=== PATIENT | male | born 1940 | race Caucasian/White ===

== ENCOUNTER → 2024-02-11 | Outpatient (BNVA) | payer MEDICARE, BC, MEDICAID, SELFPAY | END | disposition home or self-care (01) | PROVIDERS: PCP Family Medicine; Referring Provider Family Medicine; Visit Provider Urology | DX: C61 Malignant neoplasm of prostate (principal); N13.2 Hydronephrosis with renal and ureteral calculous obstruction; Z90.79 Acquired absence of other genital organ(s); E78.00 Pure hypercholesterolemia, unspecified; Z86.73 Personal history of transient ischemic attack (TIA), and cerebral infarction without residual deficits; I48.91 Unspecified atrial fibrillation; I25.10 Atherosclerotic heart disease of native coronary artery without angina pectoris; Z87.891 Personal history of nicotine dependence | CPT/HCPCS: 81003; 99212; G0463 ==

== ENCOUNTER → 2024-04-25 | Outpatient (CLI) | payer MEDICARE, BC, MEDICAID, SELFPAY ==
[2024-04-25 09:07] LABS: Prostate Specific Antigen < 0.10 ng/mL (0-4.00)
== END | disposition home or self-care (01) ==
PROVIDERS: PCP Family Medicine; Referring Provider Urology; Visit Provider Urology
DX: C61 Malignant neoplasm of prostate (principal)
CPT/HCPCS: 36415; 84153

== ENCOUNTER → 2024-06-22 | Outpatient (CLI) | payer MEDICARE, BC, MEDICAID, SELFPAY ==
[2024-06-22 11:29] LABS: Basophils % (Auto) 0 % (0-2.5); Eosinophils # (Auto) 0.2 Thou/mm3 (0.0-0.5); Eosinophils % (Auto) 3 % (0-10); Mean Corpuscular Volume 93 fL (80-100); Monocytes # (Auto) 0.2 Thou/mm3 (0.0-0.8); Nucleated Red Blood Cell % 0 /100 WBC (0); White Blood Count 5.8 Thou/mm3 (3.8-10.6)
[2024-06-22 11:31] LABS: Hematocrit 40.6 % (41.0-53.0); Immature Granulocytes % (Auto) 1 % (0-0); Immature Granulocytes Auto 0.05 Thou/mm3 (0.00-0.00); Lymphocytes # (Auto) 0.8 Thou/mm3 (1.0-4.8); Lymphocytes % (Auto) 13 % (10-50); Mean Corpuscular HGB Conc 29.6 g/dl (31.0-37.0); Mean Corpuscular Hemoglobin 27.5 pg (25.0-35.0); Monocytes % (Auto) 4 % (0-12); Neutrophils # (Auto) 4.6 Thou/mm3 (1.8-7.7); Neutrophils % (Auto) 79 % (37-80); RDW Standard Deviation 50.5 fL (35.1-43.9); Red Blood Count 4.36 Miln/mm3 (4.50-5.90)
[2024-06-22 11:58] LABS: Platelet Count 58 Thou/mm3 (140-440)
[2024-06-22 12:25] LABS: Slide Review Platelets confirmed
== END | disposition home or self-care (01) ==
LOC: COPL 09:19
PROVIDERS: PCP Family Medicine; Referring Provider Family Medicine; Visit Provider Family Medicine
DX: D50.0 Iron deficiency anemia secondary to blood loss (chronic) (principal)
CPT/HCPCS: 36415; 85025

== ENCOUNTER → 2024-09-25 | Outpatient (BNVA) | payer MEDICARE, BC, MEDICAID, SELFPAY | END | disposition home or self-care (01) | PROVIDERS: PCP Family Medicine; Referring Provider Family Medicine; Visit Provider Urology | DX: C61 Malignant neoplasm of prostate (principal); E78.00 Pure hypercholesterolemia, unspecified; I48.91 Unspecified atrial fibrillation; I25.2 Old myocardial infarction; I25.10 Atherosclerotic heart disease of native coronary artery without angina pectoris; Z86.73 Personal history of transient ischemic attack (TIA), and cerebral infarction without residual deficits | CPT/HCPCS: 81003; 99212; G0463 ==

== ENCOUNTER → 2024-11-03 | Outpatient (CLI) | payer MEDICARE, MEDICAID, SELFPAY ==
--- NOTE | 2024-11-03 09:15 | XR_ITS ---
Examination: Retroperitoneal ultrasound, complete Technique: Multiple high resolution grayscale images of the retroperitoneum obtained, including kidneys and bladder. Exam date and time:November 03, 2024, 0911 hours INDICATIONS: History kidney stones left ureteral stent FINDINGS: Right kidney 9.6 cm renal cortex 1.7 cm 22 mm lower pole, 24 mm 43 mm upper pole cyst Left kidney 10.7 cm cortex 1.8 cm 11 mm midpole calculus No hydronephrosis Contracted urinary bladder IMPRESSION: 11 mm left renal calculus No hydronephrosis
== END | disposition home or self-care (01) ==
PROVIDERS: Referring Provider Urology; Visit Provider Urology
DX: N20.0 Calculus of kidney (principal)
CPT/HCPCS: 76770

== ENCOUNTER 2024-12-06 06:49 | Day surgery (SDC) | payer MEDICARE, MEDICAID, SELFPAY ==
--- NOTE | 2024-12-05 08:35 | EKG_ITS ---
[facility] Test Date: 2024-12-05 Pat Name: MIRANDA ALVARENGA Department: Room: - Gender: Male Senior [employer] Administrator: VICTOR MANUEL : 1940 Requested By: Aram Quispe Order Number: [id number] Reading MD: Aram Quispe Measurements Intervals [place] Rate: 56 P: -24 MA: 207 QRS: -70 QRSD: 127 T: -64 QT: 430 QTc: 416 Interpretive Statements SINUS BRADYCARDIA POSSIBLE LEFT VENTRICULAR HYPERTROPHY [VOLTAGE CRITERIA PLUS LAE OR QRS WIDENING] ANTERIOR MYOCARDIAL INFARCTION , PROBABLY RECENT [40+ ms Q WAVE AND/OR ST/T ABNORMALITY IN V3/V4] INFERIOR MYOCARDIAL INFARCTION , OF INDETERMINATE AGE [40+ ms Q WAVE AND/OR ST/T ABNORMALITY IN II/aVF] ACUTE WI Compared to ECG 11/03/2023 20:30:03 Atrial fibrillation no longer present Ventricular premature complex(es) no longer present Aberrant conduction of supraventricular beat(s) no longer present Myocardial infarct finding still present /store/S0/[id number]/ecg/[id number].pdf
[2024-12-05 09:37] LABS: Anion Gap 9 (7-16); BUN/Creatinine Ratio 12 Ratio (12-20); Basophils # (Auto) 0.0 Thou/mm3 (0.0-0.2); Basophils % (Auto) 0 % (0-2.5); Blood Urea Nitrogen 14 mg/dL (9-23); Calcium 10.8 mg/dL (8.3-10.6); Carbon Dioxide 27.3 mMol/L (20.0-31.0); Chloride 109 mMol/L (98-107); Creatinine (Component) 1.2 mg/dL (0.6-1.3); Eosinophils # (Auto) 0.1 Thou/mm3 (0.0-0.5); Eosinophils % (Auto) 2 % (0-10); Glucose 113 mg/dL (74-106); Hematocrit 46.9 % (41.0-53.0); Hemoglobin 13.7 g/dL (13.5-16.0); Immature Granulocytes Auto 0.03 Thou/mm3 (0.00-0.00); Lymphocytes # (Auto) 0.7 Thou/mm3 (1.0-4.8); Lymphocytes % (Auto) 12 % (10-50); Mean Corpuscular HGB Conc 29.2 g/dl (31.0-37.0); Mean Corpuscular Hemoglobin 26.6 pg (25.0-35.0); Mean Corpuscular Volume 91 fL (80-100); Monocytes # (Auto) 0.1 Thou/mm3 (0.0-0.8); Monocytes % (Auto) 2 % (0-12); Neutrophils # (Auto) 4.9 Thou/mm3 (1.8-7.7); Neutrophils % (Auto) 83 % (37-80); Nucleated Red Blood Cell # 0.00 Thou/mm3 (0.00-0.00); Nucleated Red Blood Cell % 0 /100 WBC (0); Osmolality,Calculated 290 (275-295); Potassium 4.6 mMol/L (3.4-5.1); RDW Standard Deviation 47.8 fL (35.1-43.9); Red Blood Count 5.16 Miln/mm3 (4.50-5.90); Sodium 145 mMol/L (136-145); White Blood Count 5.9 Thou/mm3 (3.8-10.6); eGFR 60 See Note
[2024-12-05 09:40] LABS: INR 1.1 (0.9-1.3); Partial Thromboplastin Time 27.1 Seconds (22.0-36.0); Prothrombin Time 11.5 Seconds (9.0-12.2)
[2024-12-05 09:45] LABS: Platelet Count 38 Thou/mm3 (140-440)
[2024-12-05 09:54] LABS: Slide Review Platelets confirmed
[2024-12-05 12:25] VITALS: BMI 24.4
[2024-12-06] VITALS (14 sets, daily range): BP systolic 105–146; BP diastolic 55–84; PULSE 58–73; RESP 15–22; TEMP 36.5; O2SAT 92–94; BMI 27.6
--- NOTE | 2024-12-06 11:00 | PC.NURSE ---
TR band removed at this time. Surgical site with no active bleeding, no hematoma noted on right upper extremity or around the surgical site, yohana-surgical site note to be bruised about 3 cm x 2 cm, proximal pre-existent bruised area remains with no changes. Capillary refill < 3 seconds. No noted changes in color or temperature on right upper extremity. Patient denies general and localized pain, no loss in sensation, no tingling or numbness felt to right upper extremity. Tagaderm and Coban wrap applied. Will continue to monitor.
--- NOTE | 2024-12-06 11:59 | PC.NURSE ---
Patient discharged in stable conditions accompanied by family. Resident left Unit walking to visit family member in the hospital (4th floor)
--- NOTE | 2024-12-09 17:44 | ESOP_ITS ---
RE: MIRANDA ALVARENGA : 1940 DATE OF OPERATION: 12/06/2024 PROCEDURES PERFORMED: 1. Diagnostic left heart cardiac catheterization, selective coronary angiogram, left ventricular angiogram. 2. Ultrasound guided access, right radial artery. 3. Conscious sedation, 30 minutes duration. DIAGNOSES: Coronary artery disease, status post stent placement, angina pectoris, abnormal stress test. HISTORY AND INDICATIONS: The patient is an 84-year-old male with a history of CAD, status post stent placement, angioplasty, and angina pectoris. He has been having recurrent shortness of breath, chest pain on exertion. Cardiac stress test and nuclear scan showed extensive inferolateral ischemia, hence coronary angiogram was recommended to assess the patient is a candidate for intervention and revascularization DESCRIPTION OF PROCEDURE: The patient was brought to the cardiac catheterization laboratory. He was given 2 mg of Versed and 50 mcg of fentanyl for conscious sedation. The right radial approach was taken. The right radial artery was cannulated by micropuncture technique and a 6-Yi Glidesheath was introduced. Selective right cornary angiogram was performed by using a TIG4 diagnostic catheter. Used JL5 diagnostic catheter to perform selective left coronary angiogram. The patient tolerated the procedure well. No complications. Cardiac catheterization showed following findings: HEMODYNAMICS: Left ventricular pressure is 105/10. Aortic pressure is 105/70. No gradient across the aortic valve. Left ventricular angiography showed normal left ventricular wall motion. Ejection fraction is 55% to 60%. Coronary angiography showed the following findings: Right coronary artery is large and dominant and showed total occlusion in the mid segment. Heavy calcification is seen in the proximal and mid segment. Distal RCA is visualized via collaterals. Filling is excellent via collaterals. Left coronary system: Left main coronary artery is normal. Calcification is seen in the proximal and mid LAD. Left anterior descending artery showed multiple stents patent. Circumflex artery is nondominant. It appears to show no significant stenosis. There is one large obtuse marginal branch and also posterolateral branches, which are giving excellent collaterals to the RCA and distal right coronary system. SUMMARY OF FINDINGS: 1. Mildly patent stents in the mid and proximal left anterior descending artery. 2. Total occlusion of the right coronary artery with excellent skmy-st-kzziz collaterals. 3. Calcification of the proximal LAD and proximal left main with no significant stenosis. 4. Well-preserved LV function. RECOMMENDATIONS: The patient is reassured about the absence of significant left coronary artery disease. Right coronary artery occlusion is chronic and total with excellent collaterals. Maximum medical management is warranted. Guideline-directed medical management for stable angina pectoris. DT: 16:33:14 TT: 17:39:00 Ref: [id number] - TID: [id number] MTDD
== END 2024-12-06 11:59 | disposition home or self-care (01) ==
PROVIDERS: PCP Family Medicine; Referring Provider Internal Medicine Cardiovascular Disease; Visit Provider Internal Medicine Cardiovascular Disease
PROC: (CPT 93458; principal; 2024-12-06 07:30)
DX: I25.118 Atherosclerotic heart disease of native coronary artery with other forms of angina pectoris (principal); Z95.5 Presence of coronary angioplasty implant and graft; I25.82 Chronic total occlusion of coronary artery; Z01.810 Encounter for preprocedural cardiovascular examination; E78.2 Mixed hyperlipidemia; R94.30 Abnormal result of cardiovascular function study, unspecified; I48.21 Permanent atrial fibrillation; Z79.899 Other long term (current) drug therapy; Z79.01 Long term (current) use of anticoagulants
CPT/HCPCS: 93458; 36415; 80048; 85025; 85610; 85730; 93005; 99152; A4649; C1751; C1769; C1887; C1894; J0168; J0461; J1643; J2250; J2312; J2371; J2720; J3010; J3490; Q9967; C1725; J2305

== ENCOUNTER 2024-12-09 09:45 | Emergency (ER) | payer MEDICARE, MEDICAID, SELFPAY ==
[2024-12-09 09:46] VITALS: BMI 27.4
[2024-12-09 09:57] VITALS: BP 144/74; PULSE 49; RESP 17; TEMP 36.7; O2SAT 96
--- NOTE | 2024-12-09 10:41 | PD.EDEXREM ---
ED Extremity Problem RME/HPI General Chief complaint: Extremity Problem,Nontraumatic Stated complaint: BRUISING TO RIGHT ARM AFTER HEART CATH 3 DAYS AGO Time Seen by Provider: 12/09/24 10:19 Arrival date/time: 12/09/24 09:45 RME / HPI RME / HPI Narrative: DR. CARDONA MAIN ED EVALUATION: 84 y/o male with Hx of Atrial Fibrillation, CAD, Prostate CA, Anemia, and TIA presents to ED c/o RUE bruising s/p angiogram x 6 hours. Per granddaughter, bandage was removed from the forearm yesterday with no signs of bruising. Bruising has now improved in size and color. Patient has been off Eliquis for 6 days now. Denies swelling, back pain, or any recent injury or trauma. Patient reports an allergy to Ampicillin. No changes to sensation. No weakness no numbness. No shortness of breath. No chest pain. No changes in sensation to upper extremity. Related Data Home Medications ?Medication ?Instructions ?Recorded ?Confirmed atorvastatin 20 mg tablet 20 mg PO QDAY 08/24/17 09/25/24 [id number]-kousif tablet 1 tab PO QDAY 05/23/21 09/25/24 omeprazole 40 mg capsule,delayed 40 mg PO QDAY 05/23/21 09/25/24 release apixaban 5 mg tablet (Eliquis) 5 mg PO BID 12/01/23 09/25/24 Held on 12/06/24. Instructions: Resume on 12/23/24. HOLD THIS MEDICATION UNTIL YOU TALK TO Dr. MUNGUIA AND HE TELLS YOU IS OK FOR YOU TO CONTINUE TAKING IT ascorbic acid 100 mg-zinc sulfate 1 tab PO DAILY 12/01/23 09/25/24 200 mg tablet ferrous sulfate 325 mg (65 mg 325 mg PO QDAY 12/01/23 09/25/24 iron) tablet (Iron (ferrous sulfate)) tamsulosin 0.4 mg capsule (Flomax) 0.4 mg PO QDAY 12/01/23 09/25/24 aspirin 81 mg tablet 81 mg PO QDAY 09/25/24 09/25/24 Previous Rx's ?Medication ?Instructions ?Recorded furosemide 40 mg tablet (Lasix) 40 mg PO QAM #30 tabs 11/01/23 tramadol 50 mg tablet 50 mg PO Q8H PRN pain #20 tabs 12/02/23 Allergies Allergy/AdvReac Type Severity Reaction Status Date / Time adhesive tape Allergy Severe Hives Verified 12/09/24 16:07 ampicillin Allergy Severe Hives Verified 12/09/24 16:07 Review of Systems Review of Systems Systems Reviewed: All systems reviewed, normal except as documented Past Medical History Past Medical History NEUROLOGIC: Positive Transient Ischemic Attacks (TIA) CARDIAC: Positive Cardiac Disorders (Dilated aorta), Myocardial Infarction, Atrial Fibrillation, Coronary Artery Disease and Hypercholesterolemia RESPIRATORY: Positive Pneumonia (recent) GASTROINTESTINAL: Positive Gastrointestinal Disorders and Hemorrhoids GENITOURINARY: Positive Genitourinary Disorders, Kidney Stones and Prostate Cancer ENT: Positive Cataracts and Deafness HEMATOLOGIC: Positive Blood Disorders and Anemia OTHER HISTORY: Positive Hospitalization (recent pneumonia), Chicken Pox, Measles, Mumps, Cancer and Prostate Cancer Family History FAMILY HISTORY: Positive Family Cancer (Prostate) and Family Surgery Surgical History SURGICAL: Positive Coronary Stent (2009 x3 stents), Tonsillectomy, Transurethral Resection (Prostatectomy robotic) and Vasectomy ED Exam Narrative Physical exam: GEN. APPEARANCE: The patient is alert awake oriented X-3 in no distress, sitting comfortably, does not look ill/toxic. Patient has good eye contact. Patient is cooperative. VITALS: All vitals were reviewed and the pulse ox is 96% on room air which is normal according to my interpretation. HEENT: Normocephalic, atraumatic. Pupils are equal and reactive. Oral mucosa is moist. Patent Nares NECK: Supple, nontender, no thyromegaly, no meningismus, no JVD CHEST: Symmetrical, atraumatic, and with equal expansion , Nontender on palpation no deformity and no crepitus. CARDIOVASCULAR: Heart regular rhythm no murmur or gallop rub or extra beats. LUNGS: Clear to auscultation bilaterally with symmetrical chest rise. No laboring tachypnea or wheezing. No intercostal subcostal retraction. No rales and no rhonchi. ABDOMEN: Soft, flat, nontender to palpation, no guarding or rebound tenderness. There are no abnormal masses palpated. Active and normal bowel sounds. EXTREMITIES: Nontender. No edema. No cyanosis. Patient is able to move all 4 extremities well, with full ROM. 12-inch hematoma to the right forearm, 2+ radial and ulnar pulses. Flat. compartments soft. 2+ radial and ulnar pulses, symmetric b/l UEs, no bruits, no active bleeding SKIN: Warm and dry, no jaundice or rashes noted. NEURO: Patient is SAWYER x 4, Cranial nerves II through XII grossly intact. There is no focal neurologic deficits noted. GCS is 15, PNS and REFRACTIVE SURGEON appear grossly intact. PSYCHIATRIC: Patient is in normal mood and affect. Course Quality Measures none Orders Category Date Time Status CT Screening NOW Care 12/09/24 10:42 Completed CBC Stat Lab 12/09/24 10:54 Completed CMP [Comprehensive Metabolic Panel] Stat Lab 12/09/24 10:54 Completed Type and Screen Stat Lab 12/09/24 10:54 Completed Reevaluation(s) Reevaluation #1: Patient is adamant about not being poked again and declines angiogram at this time. Hematoma remains unchanged with good pulses. Patient will F/U as outpatient with Dr. Munguia, his baccarat dealer on Wednesday. Granddaughter agrees and is ok with patient's wishes. Patient will return if symptomms worsen, swells, or if anything arises of concern. Time: 14:00 Vital Signs Vital signs: Vital Signs Temperature 98.0 F 12/09/24 09:57 Pulse Rate 49 L 12/09/24 09:57 Respiratory Rate 17 12/09/24 09:57 Blood Pressure 144/74 H 12/09/24 09:57 Pulse Oximetry (%) 96 12/09/24 09:57 Oxygen Delivery Method Room Air 12/09/24 09:57 Extremity Problem MDM Narrative MDM Narrative:: Scribe Attestation: Marisol Klein am scribing for and in the presence of Dr. Cardona. Provider Notation: Although this document has been carefully reviewed, there may still be some phonetic and other typographical errors. These errors are purely grammatical due to imperfections in the software program and should not be construed in any way to compromise the substance of the patient's medical care during this visit. Patient is a 84 yo male that is in the ED with bruising to RUE after angiogram. VS and exam as listed. Patient w/o signs of bleeding. Hematoma not expanding, however given that hematoma presented post angiogram concern for AVM, aneurysm. Ordered CT, labs, offered meds for symptom relief. Labs reassuring. Patient IV in CT infiltrated and nursing staff attempted to replace IV, however, patient declined further attempts to place IV and does not want to move forward with CTA of UE. Patient understands that we have not r/o life threatening pathology, however, he feels well and will monitor symptoms at home. If worsening bruising, swelling, or any other symptom of concern, will return immediately. Will dc to home. Patient HD stable. Hematoma outlined with marker to follow. Patient and grand daughter will closely monitor. Patient data External records reviewed:: [facility] previous records (Reviewed prior ED records from 10/25/23. Patient was seen for Acute respiratory failure with hypoxia.) Clinical information provided by:: patient Social determinants that could affect healthcare access:: none Patient has the following chronic illnesses:: Atrial Fibrillation, Coronary Artery Disease, Hypercholesterolemia, Hemorrhoids, Kidney Stones, Prostate Cancer, Anemia, Cataracts, Deafness How is presenting disease/condition affected by chronic disease/condition?: exacerbated by Evaluation data The following diagnostics were reviewed and interpreted by me:: lab results Lab and/or radiology exams considered but not ordered:: None Interpretation Summary: See MDM above. Medications / Prescriptions Medications or Prescriptions considered but not ordered:: None Medication administrations:: See above if any. Consultations Consultation(s) initiated? (list below): No Diagnosis Extremity Problem Differential Diagnosis: superficial thrombophlebitis, deep venous thrombosis of upper extremity and other (Contusion, PE) Most likely diagnosis given after review of the tests above:: Hematoma of right forearm Admission Indicated Admission indicated?: not indicated Explain why admission is indicated or not indicated:: Patient does not meet admission criteria. Admission Request Was there a request for admission?: No Disposition Plan Disposition Plan: Discharge Discharge Attestation Discharge Attestation: The patient and all family members were given an opportunity to ask questions and understood the discharge instructions. Discharge instructions specifically effects, indications for sooner follow up or return to the emergency department, and the expected course of current diagnosis. Patient condition: Stable Discharge Plan Plan Patient Disposition: HOME (Self Care) Prescriptions/Referrals Prescriptions/Med Rec: No Action aspirin 81 mg tablet 81 mg PO QDAY omeprazole 40 mg capsule,delayed release(DR/EC) 40 mg PO QDAY Patient Comments: TAKE 1 CAPSULE BY MOUTH ONCE DAILY [id number] Tablet 1 tab PO QDAY atorvastatin 20 mg Tablet 20 mg PO QDAY ascorbic acid-zinc sulfate 200-100 mg Tablet 1 tab PO DAILY tamsulosin [Flomax] 0.4 mg Capsule 0.4 mg PO QDAY ferrous sulfate [Iron (ferrous sulfate)] 325 mg (65 mg iron) Tablet 325 mg PO QDAY Eliquis 5 mg Tablet 5 mg PO BID tramadol 50 mg tablet 50 mg PO Q8H PRN (Reason: pain) Qty: 20 0RF furosemide [Lasix] 40 mg tablet 40 mg PO QAM Qty: 30 0RF Referrals: Nicola Chase MD [Primary Care Provider, Family Practice] - In 1 week Problem List Clinical Impression: Hematoma of right forearm Patient/Caregiver Discharge Instructions Education Materials: ED Contusion, Upper Extremity Additional Instructions: Follow-up with your baccarat dealer on Wednesday. Return immediately if symptoms worsen or persist. It is very important that you monitor your hematoma in your arm. If you develop swelling, the hematoma expands, you have changes in sensation in your arm, chest pain, shortness of breath or any other symptom of concern it is important that you call 911 or return to the emergency department. In the event that you develop bleeding is important they please return to can immediately come to the emergency department. Print Language: Algerian Stand Alone Forms: [employer] Award Info., Patient Portal Info Letter
--- NOTE | 2024-12-09 10:43 | PD.EDEXREM ---
ED Extremity Problem RME/HPI General Chief complaint: Extremity Problem,Nontraumatic Stated complaint: BRUISING TO RIGHT ARM AFTER HEART CATH 3 DAYS AGO Time Seen by Provider: 12/09/24 10:19 Arrival date/time: 12/09/24 09:45 Related Data Home Medications ?Medication ?Instructions ?Recorded ?Confirmed atorvastatin 20 mg tablet 20 mg PO QDAY 08/24/17 09/25/24 [id number] tablet 1 tab PO QDAY 05/23/21 09/25/24 omeprazole 40 mg capsule,delayed 40 mg PO QDAY 05/23/21 09/25/24 release apixaban 5 mg tablet (Eliquis) 5 mg PO BID 12/01/23 09/25/24 Held on 12/06/24. Instructions: Resume on 12/23/24. HOLD THIS MEDICATION UNTIL YOU TALK TO Dr. MUNGUIA AND HE TELLS YOU IS OK FOR YOU TO CONTINUE TAKING IT ascorbic acid 100 mg-zinc sulfate 1 tab PO DAILY 12/01/23 09/25/24 200 mg tablet ferrous sulfate 325 mg (65 mg 325 mg PO QDAY 12/01/23 09/25/24 iron) tablet (Iron (ferrous sulfate)) tamsulosin 0.4 mg capsule (Flomax) 0.4 mg PO QDAY 12/01/23 09/25/24 aspirin 81 mg tablet 81 mg PO QDAY 09/25/24 09/25/24 Previous Rx's ?Medication ?Instructions ?Recorded furosemide 40 mg tablet (Lasix) 40 mg PO QAM #30 tabs 11/01/23 tramadol 50 mg tablet 50 mg PO Q8H PRN pain #20 tabs 12/02/23 Allergies Allergy/AdvReac Type Severity Reaction Status Date / Time adhesive tape Allergy Severe Hives Verified 12/09/24 09:48 ampicillin Allergy Severe Hives Verified 12/09/24 09:48 Course Orders Category Date Time Status CT Screening NOW Care 12/09/24 10:[address] angio UE RT Stat Exams 12/09/24 10:41 Ordered CBC Stat Lab 12/09/24 10:54 Completed CMP [Comprehensive Metabolic Panel] Stat Lab 12/09/24 10:54 Completed Type and Screen Stat Lab 12/09/24 10:54 Completed Vital Signs Vital signs: Vital Signs Temperature 98.0 F 12/09/24 09:57 Pulse Rate 49 L 12/09/24 09:57 Respiratory Rate 17 12/09/24 09:57 Blood Pressure 144/74 H 12/09/24 09:57 Pulse Oximetry (%) 96 12/09/24 09:57 Oxygen Delivery Method Room Air 12/09/24 09:57 Discharge Plan Plan Patient Disposition: HOME (Self Care) Prescriptions/Referrals Prescriptions/Med Rec: No Action aspirin 81 mg tablet 81 mg PO QDAY omeprazole 40 mg capsule,delayed release(DR/EC) 40 mg PO QDAY Patient Comments: TAKE 1 CAPSULE BY MOUTH ONCE DAILY [id number] Tablet 1 tab PO QDAY atorvastatin 20 mg Tablet 20 mg PO QDAY ascorbic acid-zinc sulfate 200-100 mg Tablet 1 tab PO DAILY tamsulosin [Flomax] 0.4 mg Capsule 0.4 mg PO QDAY ferrous sulfate [Iron (ferrous sulfate)] 325 mg (65 mg iron) Tablet 325 mg PO QDAY Eliquis 5 mg Tablet 5 mg PO BID tramadol 50 mg tablet 50 mg PO Q8H PRN (Reason: pain) Qty: 20 0RF furosemide [Lasix] 40 mg tablet 40 mg PO QAM Qty: 30 0RF Referrals: Nicola Chase MD [Primary Care Provider, Family Practice] - In 1 week Problem List Clinical Impression: Hematoma of right forearm Patient/Caregiver Discharge Instructions Education Materials: ED Contusion, Upper Extremity Additional Instructions: Follow-up with your iron melter on Wednesday. Return immediately if symptoms worsen or persist. It is very important that you monitor your hematoma in your arm. If you develop swelling, the hematoma expands, you have changes in sensation in your arm, chest pain, shortness of breath or any other symptom of concern it is important that you call 911 or return to the emergency department. In the event that you develop bleeding is important they please return to can immediately come to the emergency department. Print Language: Turkmen Stand Alone Forms: [employer] Award Info., Patient Portal Info Letter
[2024-12-09 11:09] LABS: Basophils # (Auto) 0.0 Thou/mm3 (0.0-0.2); Basophils % (Auto) 0 % (0-2.5); Eosinophils # (Auto) 0.2 Thou/mm3 (0.0-0.5); Eosinophils % (Auto) 3 % (0-10); Hematocrit 46.0 % (41.0-53.0); Hemoglobin 13.5 g/dL (13.5-16.0); Immature Granulocytes Auto 0.03 Thou/mm3 (0.00-0.00); Lymphocytes # (Auto) 0.9 Thou/mm3 (1.0-4.8); Lymphocytes % (Auto) 14 % (10-50); Mean Corpuscular HGB Conc 29.3 g/dl (31.0-37.0); Mean Corpuscular Hemoglobin 26.4 pg (25.0-35.0); Mean Corpuscular Volume 90 fL (80-100); Monocytes # (Auto) 0.2 Thou/mm3 (0.0-0.8); Monocytes % (Auto) 3 % (0-12); Neutrophils # (Auto) 5.2 Thou/mm3 (1.8-7.7); Neutrophils % (Auto) 80 % (37-80); Nucleated Red Blood Cell # 0.00 Thou/mm3 (0.00-0.00); Nucleated Red Blood Cell % 0 /100 WBC (0); RDW Standard Deviation 45.7 fL (35.1-43.9); Red Blood Count 5.12 Miln/mm3 (4.50-5.90); White Blood Count 6.5 Thou/mm3 (3.8-10.6)
[2024-12-09 11:22] LABS: Alanine Aminotransferase 14 U/L (10-49); Albumin, Serum 4.1 gm/dL (3.4-4.8); Albumin/Globulin Ratio 2.0 (1.2-2.2); Alkaline Phosphatase 91 U/L (46-116); Anion Gap 9 (7-16); Aspartate Amino Transferase 21 U/L (0-34); BUN/Creatinine Ratio 7 Ratio (12-20); Bilirubin,Total 0.9 mg/dL (0.3-1.2); Blood Urea Nitrogen 8 mg/dL (9-23); Calcium 10.5 mg/dL (8.3-10.6); Calcium (Corrected) 10.5 mg/dL (8.5-10.1); Carbon Dioxide 25.1 mMol/L (20.0-31.0); Chloride 109 mMol/L (98-107); Creatinine (Component) 1.2 mg/dL (0.6-1.3); Estimated Creatinine Clearance 48.8 mL/min (>60); Globulin 2.1 gm/dL (2.3-3.5); Glucose 96 mg/dL (74-106); Osmolality,Calculated 283 (275-295); Potassium 5.0 mMol/L (3.4-5.1); Sodium 143 mMol/L (136-145); Total Protein 6.2 gm/dL (5.7-8.2); eGFR 60 See Note
[2024-12-09 11:49] LABS: Platelet Count 37 Thou/mm3 (140-440)
[2024-12-09 11:54] LABS: Slide Review Platelets confirmed
[2024-12-09 13:16] VITALS: BP 124/60; PULSE 50; RESP 16; TEMP 36.8; O2SAT 95
[2024-12-09 14:15] VITALS: BP 134/88; PULSE 87; RESP 16; O2SAT 99
== END 2024-12-09 14:17 | disposition home or self-care (01) ==
PROVIDERS: Emergency Provider Emergency Medicine; PCP Family Medicine
DX: S50.11XA Contusion of right forearm, initial encounter (principal); I48.91 Unspecified atrial fibrillation; I25.10 Atherosclerotic heart disease of native coronary artery without angina pectoris; C61 Malignant neoplasm of prostate; Z86.73 Personal history of transient ischemic attack (TIA), and cerebral infarction without residual deficits; Z88.0 Allergy status to penicillin; Z95.5 Presence of coronary angioplasty implant and graft; Z90.79 Acquired absence of other genital organ(s); Z90.89 Acquired absence of other organs; E78.00 Pure hypercholesterolemia, unspecified; K64.9 Unspecified hemorrhoids; X58.XXXA Exposure to other specified factors, initial encounter
CPT/HCPCS: 36415; 80053; 85025; 86850; 86900; 86901; 99283

== ENCOUNTER 2024-12-09 16:04 | Emergency (ER) | payer MEDICARE, MEDICAID, SELFPAY ==
[2024-12-09 16:05] VITALS: BMI 12.1
--- NOTE | 2024-12-09 16:36 | PD.EDALLER ---
ED Allergic Reaction RME/HPI General Chief complaint: Extremity Problem,Nontraumatic Stated complaint: SEVERE SWELLING AT IV SITE LEFT ARM Time Seen by Provider: 12/09/24 16:17 Arrival date/time: 12/09/24 16:04 RME / HPI RME / HPI narrative: DR. 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 Patient just left ED after contrast line ruptured while awaiting CT of RUE. Patient received 100 cc of IV contrast. Denies any shortness of breath, rashes, difficulty breathing. States that since discharge she is noticed that his left upper extremity feels tight. Related Data Home Medications ?Medication ?Instructions ?Recorded ?Confirmed atorvastatin 20 mg tablet 20 mg PO QDAY 08/24/17 09/25/24 ahmtejajhura-kzajpkam-fwlusn tablet 1 tab PO QDAY 05/23/21 09/25/24 omeprazole 40 mg capsule,delayed 40 mg PO QDAY 05/23/21 09/25/24 release apixaban 5 mg tablet (Eliquis) 5 mg PO BID 12/01/23 09/25/24 Held on 12/06/24. Instructions: Resume on 12/23/24. HOLD THIS MEDICATION UNTIL YOU TALK TO Dr. MUNGUIA AND HE TELLS YOU IS OK FOR YOU TO CONTINUE TAKING IT ascorbic acid 100 mg-zinc sulfate 1 tab PO DAILY 12/01/23 09/25/24 200 mg tablet ferrous sulfate 325 mg (65 mg 325 mg PO QDAY 12/01/23 09/25/24 iron) tablet (Iron (ferrous sulfate)) tamsulosin 0.4 mg capsule (Flomax) 0.4 mg PO QDAY 12/01/23 09/25/24 aspirin 81 mg tablet 81 mg PO QDAY 09/25/24 09/25/24 Previous Rx's ?Medication ?Instructions ?Recorded furosemide 40 mg tablet (Lasix) 40 mg PO QAM #30 tabs 11/01/23 tramadol 50 mg tablet 50 mg PO Q8H PRN pain #20 tabs 12/02/23 Allergies Allergy/AdvReac Type Severity Reaction Status Date / Time adhesive tape Allergy Severe Hives Verified 12/09/24 16:07 ampicillin Allergy Severe Hives Verified 12/09/24 16:07 Review of Systems Review of Systems Systems Reviewed: All systems reviewed, normal except as documented Past Medical History Past Medical History NEUROLOGIC: Positive Transient Ischemic Attacks (TIA) CARDIAC: Positive Cardiac Disorders, Myocardial Infarction, Atrial Fibrillation, Coronary Artery Disease and Hypercholesterolemia RESPIRATORY: Positive Pneumonia GASTROINTESTINAL: Positive Gastrointestinal Disorders and Hemorrhoids GENITOURINARY: Positive Genitourinary Disorders, Kidney Stones and Prostate Cancer ENT: Positive Cataracts and Deafness HEMATOLOGIC: Positive Blood Disorders and Anemia OTHER HISTORY: Positive Hospitalization, Chicken Pox, Measles, Mumps, Cancer and Prostate Cancer Family History FAMILY HISTORY: Positive Family Cancer and Family Surgery Surgical History SURGICAL: Positive Coronary Stent, Tonsillectomy, Transurethral Resection and Vasectomy ED Exam Narrative Physical exam: GEN. APPEARANCE: The patient is alert awake oriented X-3 in no distress, lying down comfortably, does not look ill/toxic. Patient has good eye contact. Patient is cooperative. VITALS: All vitals were reviewed and the pulse ox is 97% on room air which is normal according to my interpretation. HEENT: Normocephalic, atraumatic. Pupils are equal and reactive. Oral mucosa is moist. Patent Nares NECK: Supple, nontender, no thyromegaly, no meningismus, no JVD, no stridor CHEST: Symmetrical, atraumatic, and with equal expansion , Nontender on palpation no deformity and no crepitus. CARDIOVASCULAR: Heart regular rhythm no murmur or gallop rub or extra beats. LUNGS: Clear to auscultation bilaterally with symmetrical chest rise. No laboring tachypnea or wheezing. No intercostal subcostal retraction. No rales and no rhonchi. ABDOMEN: Soft, flat, nontender to palpation, no guarding or rebound tenderness. There are no abnormal masses palpated. Active and normal bowel sounds. EXTREMITIES: Nontender. 12-inch hematoma to the right forearm, 2+ radial and ulnar pulses. LUE swollen, boggy, strong pulses, intact sensation. No cyanosis. Patient is able to move all 4 extremities well, with full ROM and good CSM. SKIN: Warm and dry, no jaundice or rashes noted. Patient does have swelling of the left upper extremity at the site where patient received IV contrast. Compartments are soft. Swelling is located to the forearm mid forearm, and elbow immediately. 2+ radial, 2+ ulnar pulses symmetric strong. Sensation intact. Full range of motion. Patient hematoma on right upper extremity stable, unchanged from prior visit. NEURO: Patient is SAWYER x 4, Cranial nerves II through XII grossly intact. There is no focal neurologic deficits noted. GCS is 15, PNS and [employer] appear grossly intact. PSYCHIATRIC: Patient is in normal mood and affect. Course Quality Measures none Orders Category Date Time Status CT Screening NOW Care 12/09/24 16:18 Active US venous doppler UE LT Stat Exams 12/09/24 18:35 Ordered DiphenhydrAMINE INJ [Benadryl Inj] Med 12/09/24 16:34 Discontinued 50 mg IM X1 ONE Famotidine Inj [Pepcid Inj] Med 12/09/24 16:34 Discontinued 40 mg IVP X1 ONE MethylPREDNISolone.* [SoluMEDROL Inj] Med 12/09/24 16:34 Discontinued 125 mg IVP X1 ONE Vital Signs Vital signs: Vital Signs Temperature 97.5 F 12/09/24 16:56 Pulse Rate 56 L 12/09/24 16:56 Respiratory Rate 18 12/09/24 16:56 Blood Pressure 163/89 H 12/09/24 16:56 Pulse Oximetry (%) 97 12/09/24 16:56 Oxygen Delivery Method Room Air 12/09/24 16:56 Allergic Reaction MDM Narrative MDM Narrative:: Scribe Attestation: Marisol Klein, trace scribing for and in the presence of Dr. Cardona. Provider Notation: Although this document has been carefully reviewed, there may still be some phonetic and other typographical errors. These errors are purely grammatical due to imperfections in the software program and should not be construed in any way to compromise the substance of the patient's medical care during this visit. Patient is an 84-year-old male is in the emergency permit concerns for swelling to the left upper extremity after receiving IV contrast in the emergency department. Vital signs and exam as listed. Concern for allergic reaction. Immediately placed patient in resuscitation room, obtained IV access ordered steroids famotidine and Benadryl. Patient without any stridor no difficulty breathing no nausea or vomiting. No rashes. Less likely anaphylaxis. Patient compartments are soft, less likely compartment syndrome. Patient has 2+ radial ulnar pulses symmetric intact. After period of observation, went to reevaluate patient however swelling has become worse. Given this had joint decision made conversation with the patient, advised him to stay in the emergency department for further evaluation and reassessments to make sure that he does not develop compartment syndrome. I also consulted pharmacist Gorge, will review guidelines and recommendations of use of hyaluronidase for extravasated IV contrast and will call back with the nighttime provider. At this time my shift is in a transition care over to oncoming provider Dr. Sparks. Patient is pending reevaluation and safe dispo. Patient data External records reviewed:: [facility] previous records (Reviewed prior ED records from [facility]. Patient was seen for Hematoma of right forearm.) Clinical information provided by:: patient Social determinants that could affect healthcare access:: none Patient has the following chronic illnesses:: Atrial Fibrillation, Coronary Artery Disease, Hypercholesterolemia, Hemorrhoids, Kidney Stones, Prostate Cancer, Anemia, Cataracts, Deafness How is presenting disease/condition affected by chronic disease/condition?: uneffected by Evaluation data The following diagnostics were reviewed and interpreted by me:: other (specify) (N/A) Lab and/or radiology exams considered but not ordered:: None Interpretation Summary: See MDM above. Medications / Prescriptions Medications or Prescriptions considered but not ordered:: None Medication administrations:: Medication Administration History Discontinued Medications Diphenhydramine HCl (Diphenhydramine Inj 50 Mg/Ml Vial) 50 mg IM X1 ONE Stop: 12/09/24 16:35 Last Admin: 12/09/24 17:07 Dose: 50 mg Documented By: EF Famotidine (Famotidine Inj 10 Mg/Ml Vial 2 Ml) 40 mg IVP X1 ONE Stop: 12/09/24 16:35 Last Admin: 12/09/24 17:06 Dose: 40 mg Documented By: EF Methylprednisolone Sodium Succinate (Methylprednisolone Sod Succ 62.5 Mg/Ml 2ml Vial) 125 mg IVP X1 ONE Stop: 12/09/24 16:35 Last Admin: 12/09/24 17:07 Dose: 125 mg Documented By: EF See above if any Consultations Consultation(s) initiated? (list below): No Diagnosis Differential Diagnosis allergic reaction: anaphylaxis, allergic reaction, angioedema and adverse reaction to drug Most likely diagnosis given after review of the tests above:: Allergic reaction Admission Indicated Admission indicated?: not indicated Explain why admission is indicated or not indicated:: Patient does not meet admission criteria. Admission Request Was there a request for admission?: No Disposition Plan Disposition Plan: Discharge Discharge Attestation Discharge Attestation: The patient and all family members were given an opportunity to ask questions and understood the discharge instructions. Discharge instructions specifically effects, indications for sooner follow up or return to the emergency department, and the expected course of current diagnosis. Patient condition: Stable Discharge Plan Plan Patient Disposition: HOME (Self Care) Prescriptions/Referrals Prescriptions/Med Rec: No Action aspirin 81 mg tablet 81 mg PO QDAY omeprazole 40 mg capsule,delayed release(DR/EC) 40 mg PO QDAY Patient Comments: TAKE 1 CAPSULE BY MOUTH ONCE DAILY [id number]-aqldtdim-[id number] Tablet 1 tab PO QDAY atorvastatin 20 mg Tablet 20 mg PO QDAY ascorbic acid-zinc sulfate 200-100 mg Tablet 1 tab PO DAILY tamsulosin [Flomax] 0.4 mg Capsule 0.4 mg PO QDAY ferrous sulfate [Iron (ferrous sulfate)] 325 mg (65 mg iron) Tablet 325 mg PO QDAY Eliquis 5 mg Tablet 5 mg PO BID tramadol 50 mg tablet 50 mg PO Q8H PRN (Reason: pain) Qty: 20 0RF furosemide [Lasix] 40 mg tablet 40 mg PO QAM Qty: 30 0RF Referrals: Nicola Chase MD [Primary Care Provider, Family Practice] - In 1 week Problem List Clinical Impression: Allergic reaction Patient/Caregiver Discharge Instructions Additional Instructions: Follow-up with your primary care provider in 1-2 days. Return if symptoms worsen or persist. Print Language: Liberian Stand Alone Forms: [employer] Award Info., Patient Portal Info Letter
[2024-12-09 16:56] VITALS: BP 163/89; PULSE 56; RESP 18; TEMP 36.4; O2SAT 97
[2024-12-09] MEDS: FAMOTIDINE INJ 10 MG/ML VIAL 2 ML 40 MG IVP (17:06)
[2024-12-09] MEDS: MethylPREDNISolone SOD SUCC 62.5 MG/ML 2ML VIAL 125 MG IVP (17:07)
[2024-12-09 18:09] VITALS: BP 128/75; PULSE 52; RESP 17; TEMP 36.2; O2SAT 95
--- NOTE | 2024-12-09 18:35 | XR_ITS ---
Examination: Duplex scan of the upper extremity, unilateral left Date and time of exam: December 09, 2024, 1909 hrs. Indications: Left arm swelling and pain today Technique: Duplex scan of the extremity veins using B-mode/grayscale imaging and Doppler spectral analysis and color flow Attention is directed to internal echogenicity, compression and augmentation involving these veins, color flow assessment, spectral analysis Findings: Major deep venous structures in the extremity demonstrate normal course and caliber. There is no evidence of deep vein thrombosis. Normal color flow and spectral analysis Impression: Negative for DVT..
--- NOTE | 2024-12-09 18:39 | PD.EDADDENDU ---
Emergency Room Addendum <Marisol Chavarria - Last Filed: 12/09/24 22:30> Addendum Narrative: 1800: Care assumed from Dr. Payton (emergency physician). Past medical, surgical, social and family history reviewed. Vitals and home medications reviewed. Results and treatment plan discussed. I will assume the care of the patient at this time and will follow the patient, pending labs and venous doppler US. The following addendum documentation note is intended to reflect any pending information, findings, or radiology results not included in the patient?s initial chart by the previous shift scribe. RADIOLOGY Venous Doppler Study: Findings: Major deep venous structures in the extremity demonstrate normal course and caliber. There is no evidence of deep vein thrombosis. Normal color flow and spectral analysis Impression: Negative for DVT. <Brice Sparks DO - Last Filed: 12/09/24 22:56> Addendum Narrative: 1800: Care assumed from Dr. Payton (emergency physician). Past medical, surgical, social and family history reviewed. Vitals and home medications reviewed. Results and treatment plan discussed. I will assume the care of the patient at this time and will follow the patient, pending labs and venous doppler US. The following addendum documentation note is intended to reflect any pending information, findings, or radiology results not included in the patient?s initial chart by the previous shift scribe. RADIOLOGY Venous Doppler Study: Findings: Major deep venous structures in the extremity demonstrate normal course and caliber. There is no evidence of deep vein thrombosis. Normal color flow and spectral analysis Impression: Negative for DVT. Patient underwent 5 separate injections of hyaluronidase injections around the area of infiltration. Left forearm is soft. No overlying erythema. Patient is stable for discharge home.
[2024-12-09 18:59] LABS: Basophils # (Auto) 0.0 Thou/mm3 (0.0-0.2); Basophils % (Auto) 0 % (0-2.5); Eosinophils # (Auto) 0.1 Thou/mm3 (0.0-0.5); Eosinophils % (Auto) 1 % (0-10); Hematocrit 42.8 % (41.0-53.0); Hemoglobin 12.7 g/dL (13.5-16.0); Immature Granulocytes Auto 0.04 Thou/mm3 (0.00-0.00); Lymphocytes # (Auto) 0.6 Thou/mm3 (1.0-4.8); Lymphocytes % (Auto) 7 % (10-50); Mean Corpuscular HGB Conc 29.7 g/dl (31.0-37.0); Mean Corpuscular Hemoglobin 26.6 pg (25.0-35.0); Mean Corpuscular Volume 90 fL (80-100); Monocytes # (Auto) 0.1 Thou/mm3 (0.0-0.8); Monocytes % (Auto) 1 % (0-12); Neutrophils # (Auto) 7.5 Thou/mm3 (1.8-7.7); Neutrophils % (Auto) 90 % (37-80); Nucleated Red Blood Cell # 0.00 Thou/mm3 (0.00-0.00); Nucleated Red Blood Cell % 0 /100 WBC (0); RDW Standard Deviation 45.7 fL (35.1-43.9); Red Blood Count 4.77 Miln/mm3 (4.50-5.90); White Blood Count 8.4 Thou/mm3 (3.8-10.6)
[2024-12-09 19:03] LABS: Platelet Count 36 Thou/mm3 (140-440)
[2024-12-09 19:04] LABS: Path Review Blood Smear Sent to Pathologist; Slide Review Platelets confirmed
[2024-12-09 19:14] LABS: Alanine Aminotransferase 14 U/L (10-49); Albumin, Serum 4.0 gm/dL (3.4-4.8); Albumin/Globulin Ratio 2.0 (1.2-2.2); Alkaline Phosphatase 90 U/L (46-116); Anion Gap 8 (7-16); Aspartate Amino Transferase 21 U/L (0-34); BUN/Creatinine Ratio 11 Ratio (12-20); Bilirubin,Total 0.7 mg/dL (0.3-1.2); Blood Urea Nitrogen 12 mg/dL (9-23); Calcium 10.4 mg/dL (8.3-10.6); Calcium (Corrected) 10.4 mg/dL (8.5-10.1); Carbon Dioxide 26.1 mMol/L (20.0-31.0); Chloride 108 mMol/L (98-107); Creatine Kinase 63 U/L (34-171); Creatinine (Component) 1.1 mg/dL (0.6-1.3); Estimated Creatinine Clearance 63.2 mL/min (>60); Globulin 2.0 gm/dL (2.3-3.5); Glucose 127 mg/dL (74-106); Osmolality,Calculated 284 (275-295); Potassium 4.7 mMol/L (3.4-5.1); Sodium 142 mMol/L (136-145); Total Protein 6.0 gm/dL (5.7-8.2); eGFR > 60 See Note
[2024-12-09 19:17] LABS: INR 1.1 (0.9-1.3); Prothrombin Time 11.6 Seconds (9.0-12.2)
--- NOTE | 2024-12-09 19:24 | PC.NURSE ---
Ultrasound at bedside
[2024-12-09] MEDS: HYALURONIDASE SC (19:31)
[2024-12-09] MEDS: [UNRECOGNIZED DRUG - OTHER] SC (19:31)
[2024-12-09] MEDS: SODIUM CHLORIDE 0.9% SC (19:31)
[2024-12-09 19:43] VITALS: BP 162/95; PULSE 50; RESP 17; TEMP 36.4; O2SAT 95
[2024-12-09 22:11] VITALS: BP 169/84; PULSE 68; RESP 18; TEMP 36.5; O2SAT 93
== END 2024-12-09 23:00 | disposition home or self-care (01) ==
PROVIDERS: Emergency Provider Emergency Medicine; PCP Family Medicine
DX: T80.89XA Other complications following infusion, transfusion and therapeutic injection, initial encounter (principal); M79.89 Other specified soft tissue disorders; I97.638 Postprocedural hematoma of a circulatory system organ or structure following other circulatory system procedure; Y83.8 Other surgical procedures as the cause of abnormal reaction of the patient, or of later complication, without mention of misadventure at the time of the procedure; T50.8X5A Adverse effect of diagnostic agents, initial encounter; I48.91 Unspecified atrial fibrillation; I25.10 Atherosclerotic heart disease of native coronary artery without angina pectoris; C61 Malignant neoplasm of prostate; Y92.238 Other place in hospital as the place of occurrence of the external cause; Z86.73 Personal history of transient ischemic attack (TIA), and cerebral infarction without residual deficits
CPT/HCPCS: 36415; 80053; 82550; 85025; 85610; 86850; 86900; 86901; 93971; 96372; 96374; 96375; 99283; A4216; J1200; J2919; J3473; J3490

== ENCOUNTER 2024-12-27 20:19 | Emergency (ER) | payer MEDICARE, MEDICAID, SELFPAY ==
[2024-12-27 21:09] VITALS: BP 122/64; PULSE 56; RESP 18; TEMP 36.7; O2SAT 95
--- NOTE | 2024-12-27 21:25 | XR_ITS ---
Examination: CT lumbar spine, without contrast. 2-D sagittal reconstructions. 2-D coronal reconstructions. 3-D reconstructions. Date and time of exam:December 27, 2024, 2135 hrs. Indications: Patient fell 3 days ago with injury to the lower back, lower back pain CTDI: vol (mGy):30.3 DLP: (mGycm):1066 Technique: Multiple 1.25 mm axial sections of the lumbar spine without intravenous contrast have been obtained. 2-D sagittal and coronal reconstructions have been obtained. 3-D reconstructions have been obtained. Low dose protocols were performed. One or more of the following dose reduction techniques were used; automated exposure control, adjustment of the mA and/or KV according to patient size, use of iterative reconstruction technique. Findings: Severe osteopenia No acute lumbar vertebral body compression fracture 7 mm sclerotic focus L3 Lumbar pedicles, laminae transverse and posterior spinous processes intact 4 mm sclerotic focus left iliac bone and 3 mm cortical focus right iliac bone Diffuse lumbar disc narrowing moderate to advanced There appears to be contrast versus calculi in the kidneys, clinical correlation advised L5-S1 3 mm central lumbar disc bulge L4-L5 2 mm central lumbar disc bulge Impression: No acute lumbar fracture Diffuse moderate to advanced lumbar degenerative disc disease Small lumbar disc bulges at the lower 2 lumbar levels Small sclerotic foci in the bones, consider whole body bone scan follow-up to exclude early osteoblastic metastatic disease
--- NOTE | 2024-12-27 21:26 | XR_ITS ---
Examination: Retroperitoneal ultrasound, complete Technique: Multiple high resolution grayscale images of the retroperitoneum obtained, including kidneys and bladder. Exam date and time:December 27, 2024, 10:16 PM Indications: Onset hematuria today. Findings: Right kidney 10.3 cm cortex 1.6 cm Multiple cysts, the largest in the upper pole 5.3 cm Left kidney 11.3 cm cortex 1.7 cm Moderate renal scar formation Contracted urinary bladder Impression: Bilateral renal cortical thinning Moderate bilateral renal parenchymal scar formation No hydronephrosis or renal calculi
--- NOTE | 2024-12-27 21:27 | PD.EDRME ---
Rapid Medical Screening Exam E Arrival date/time: 12/27/24 20:19 84-year-old male brought in by son with complaint of large bruise on back after falling 2 days ago and some hematuria after falling. Chief Complaint: Trauma Time Seen by Provider: 12/27/24 21:11 Vital signs: Vital Signs Temperature 98.1 F 12/27/24 21:09 Pulse Rate 56 L 12/27/24 21:09 Respiratory Rate 18 12/27/24 21:09 Blood Pressure 122/64 12/27/24 21:09 Pulse Oximetry (%) 95 12/27/24 21:09 Oxygen Delivery Method Room Air 12/27/24 21:09
[2024-12-27 22:37] LABS: Collection Type, Urine Clean Catch
[2024-12-27 22:56] LABS: Bilirubin,Urine Negative (Negative); Blood,Urine 3+ (Negative); Calcium Oxalate Crystals,Urine 4+; Color,Urine Yellow (Lt Yel-Yel); Culture Indicated,Urine Not Indicated; Glucose, Urine Negative (Negative); Hyaline Casts,Urine 3 /hpf (0-1); Ketones,Urine Trace (Negative); Leukocyte Esterase,Urine Positive (Negative); Nitrite,Urine Negative (Negative); PH,Urine 6.0 (5.0-7.0); Protein,Urine 2+ (Neg - Trace); RBC,Urine 729 /hpf (0-3); Specific Gravity,Urine 1.031 (1.001-1.035); Squamous Epithelial Cell,Urine < 1 /hpf (0-5); Urobilinogen,Urine Negative mg/dL (0.0-1.0); WBC,Urine 6 /hpf (0-5)
[2024-12-27 23:05] LABS: Clarity,Urine Turbid (Clear/Hazy)
== END 2024-12-28 02:10 | disposition left against medical advice (07) ==
PROVIDERS: Emergency Provider Emergency Medicine
DX: R31.9 Hematuria, unspecified (principal); Z53.29 Procedure and treatment not carried out because of patient's decision for other reasons
CPT/HCPCS: 72131; 76770; 81001; 99283

== ENCOUNTER → 2025-02-06 | Outpatient (CLI) | payer MEDICARE, MEDICAID, SELFPAY ==
[2025-02-06 09:46] LABS: Basophils # (Auto) 0.0 Thou/mm3 (0.0-0.2); Basophils % (Auto) 0 % (0-2.5); Eosinophils # (Auto) 0.2 Thou/mm3 (0.0-0.5); Eosinophils % (Auto) 3 % (0-10); Hematocrit 45.2 % (41.0-53.0); Hemoglobin 13.4 g/dL (13.5-16.0); Immature Granulocytes Auto 0.04 Thou/mm3 (0.00-0.00); Lymphocytes # (Auto) 0.8 Thou/mm3 (1.0-4.8); Lymphocytes % (Auto) 13 % (10-50); Mean Corpuscular HGB Conc 29.6 g/dl (31.0-37.0); Mean Corpuscular Hemoglobin 27.1 pg (25.0-35.0); Mean Corpuscular Volume 91 fL (80-100); Monocytes # (Auto) 0.2 Thou/mm3 (0.0-0.8); Monocytes % (Auto) 3 % (0-12); Neutrophils # (Auto) 5.4 Thou/mm3 (1.8-7.7); Neutrophils % (Auto) 81 % (37-80); Nucleated Red Blood Cell # 0.00 Thou/mm3 (0.00-0.00); Nucleated Red Blood Cell % 0 /100 WBC (0); RDW Standard Deviation 47.8 fL (35.1-43.9); Red Blood Count 4.95 Miln/mm3 (4.50-5.90); White Blood Count 6.6 Thou/mm3 (3.8-10.6)
[2025-02-06 10:05] LABS: Albumin, Serum 4.3 gm/dL (3.4-4.8); Anion Gap 7 (7-16); BUN/Creatinine Ratio 12 Ratio (12-20); Blood Urea Nitrogen 13 mg/dL (9-23); Calcium 10.0 mg/dL (8.3-10.6); Calcium (Corrected) 10.0 mg/dL (8.5-10.1); Carbon Dioxide 28.1 mMol/L (20.0-31.0); Chloride 109 mMol/L (98-107); Creatinine (Component) 1.1 mg/dL (0.6-1.3); Glucose 107 mg/dL (74-106); Osmolality,Calculated 286 (275-295); Phosphorous 2.9 mg/dL (2.4-5.1); Potassium 4.4 mMol/L (3.4-5.1); Prostate Specific Antigen < 0.10 ng/mL (0-4.00); Sodium 144 mMol/L (136-145); eGFR > 60 See Note
[2025-02-06 10:13] LABS: Platelet Count 33 Thou/mm3 (140-440)
[2025-02-06 11:59] LABS: Slide Review Platelets confirmed
== END | disposition home or self-care (01) ==
LOC: COPL 09:02
PROVIDERS: PCP Family Medicine; Referring Provider Family Medicine; Visit Provider Urology
DX: C61 Malignant neoplasm of prostate (principal); Z13.1 Encounter for screening for diabetes mellitus
CPT/HCPCS: 36415; 80069; 84153; 85025

== ENCOUNTER → 2025-03-23 | Outpatient (BNVA) | payer MEDICARE, MEDICAID, SELFPAY | END | disposition home or self-care (01) | PROVIDERS: PCP Family Medicine; Referring Provider Family Medicine; Visit Provider Urology | DX: N20.0 Calculus of kidney (principal); Z85.46 Personal history of malignant neoplasm of prostate; D69.6 Thrombocytopenia, unspecified | CPT/HCPCS: 81003; 99212; G0463 ==